=== PATIENT | male | born 1930 | race African-American/Black ===

== ENCOUNTER 2017-11-14 18:20 | Emergency (ER) | payer MEDICARE, MEDICAID ==
--- NOTE | 2017-11-14 18:43 | ER Document Report ---
ED Medical Screen (RME) - General Chief Complaint: Eye Problem Stated Complaint: EYE PAIN Time Seen by Provider: 11/14/17 18:36 Notes: RAPID MEDICAL EVALUATION DISCLOSURE I have seen this patient as part of a Rapid Medical Evaluation and, if applicable, placed any initially appropriate orders. The patient will be seen and fully evaluated, including a full history and physical exam, by a provider ( in Main ED or Fast Track) when a room becomes available. 87-year-old male here with niece who states that ever since yesterday he has been complaining of some pain and irritation to his right eye. This morning he woke up and his right eye was very red. The niece thinks he may have a history of glaucoma but she is unsure however he did "used to some of his eyedrops today " for the symptoms. They try to take him to his eye doctor however they were closed when they arrived so they brought him here instead. TRAVEL OUTSIDE OF THE [place] IN LAST 30 DAYS: No - Related Data Allergies/Adverse Reactions: No Known Allergies Allergy (Verified 11/14/17 18:23) Physical Exam - Vital signs Vitals: Temp Pulse Resp BP Pulse Ox 98.6 F 85 16 121/73 98 11/14/17 18:33 11/14/17 18:33 11/14/17 18:33 11/14/17 18:33 11/14/17 18:33 Course - Vital Signs Vital signs: Temp Pulse Resp BP Pulse Ox 98.6 F 85 16 121/73 98 11/14/17 18:33 11/14/17 18:33 11/14/17 18:33 11/14/17 18:33 11/14/17 18:33
[2017-11-14] MEDS ORDERED: TETRACAINE HCL 0.5% OPH SOLN 2 ML OU ONE (19:52)
--- NOTE | 2017-11-14 21:18 | ER Document Report ---
ED Eye Complaint - General Chief Complaint: Eye Problem Stated Complaint: EYE PAIN Time Seen by Provider: 11/14/17 18:36 Mode of Arrival: Ambulatory Information source: Patient Notes: 87-year-old male patient who presents with right eye irritation and mild pain. Patient reports that this started approximately 24 hours ago and he feels like there is something in his eye. Patient is unsure if he has a history of glaucoma however he reports taking 2 types of eyedrops daily. Patient reports that he is seen by chief school finance officer [facility] however he was unable to make it there in time before they closed. Patient denies any change in his vision and reports that he can see per his usual. TRAVEL OUTSIDE OF THE [place] IN LAST 30 DAYS: No - Related Data Allergies/Adverse Reactions: No Known Allergies Allergy (Verified 11/14/17 18:23) Past Medical History - General Information source: Patient - Social History Smoking Status: Never Smoker Frequency of alcohol use: None Drug Abuse: None Lives with: Family Family History: Reviewed & Not Pertinent Patient has suicidal ideation: No Patient has homicidal ideation: No - Past Medical History Cardiac Medical History: Reports: Hx Hypercholesterolemia, Hx Hypertension Renal/ Medical History: Denies: Hx Peritoneal Dialysis GI Medical History: Reports: Hx Gastroesophageal Reflux Disease Review of Systems - Review of Systems Constitutional: No symptoms reported EENT: See HPI Cardiovascular: No symptoms reported Respiratory: No symptoms reported Gastrointestinal: No symptoms reported Genitourinary: No symptoms reported Male Genitourinary: No symptoms reported Musculoskeletal: No symptoms reported Skin: No symptoms reported Hematologic/Lymphatic: No symptoms reported Neurological/Psychological: No symptoms reported Physical Exam - Vital signs Vitals: Temp Pulse Resp BP Pulse Ox 98.6 F 85 16 121/73 98 11/14/17 18:33 11/14/17 18:33 11/14/17 18:33 11/14/17 18:33 11/14/17 18:33 - Notes Notes: PHYSICAL EXAMINATION: GENERAL: Well-appearing, well-nourished and in no acute distress. HEAD: Atraumatic, normocephalic. ENT: Nares patent, oropharynx clear without exudates. Moist mucous membranes. NECK: Normal range of motion, supple without lymphadenopathy LUNGS: Breath sounds clear to auscultation bilaterally and equal. No wheezes rales or rhonchi. HEART: Regular rate and rhythm without murmurs ABDOMEN: Soft, nontender, nondistended abdomen. No guarding, no rebound. No masses appreciated. Musculoskeletal: Normal range of motion, no pitting or edema. No cyanosis. NEUROLOGICAL: Cranial nerves grossly intact. Normal speech, normal gait. Normal sensory, motor exams PSYCH: Normal mood, normal affect. SKIN: Warm, Dry, normal turgor, no rashes or lesions noted. - HEENT Head: Normocephalic Conjunctiva: Injected Cornea: Corneal ulcer Extraocular movements intact: Yes Eyelashes: Normal Pupils: PERRL Visual acuity- Right eye: 20/100 Visual acuity- Left eye: 20/50 Visual acuity- Both eyes: 20/50 Corrective lenses worn: No Lids everted for exam: right: Normal Course - Re-evaluation Re-evalutation: I examination performed after administration of 2 drops of tetracaine to the right eye. Right eye is erythematous, red, injected. Patient has what appears to be a corneal ulcer at approximately 3:[address] [place] lamp. Dr. Johansen was present for the eye exam and agrees with these findings. Patient denies any specific pain he only reports that he feels like there is something in his eye. Patient denies any change in vision. Patient's visual acuity is actually better in the right eye than in the left. Patient reports that he does not have the best vision at his baseline. Per advice from attending physician, Dr. Steen will contact [facility] as we do not have ophthalmology electrical tryout person this evening. Contacted [facility] who contacted the chief school finance officer electrical tryout person. Call received from Dr. Carli Leonard, chief school finance officer with [facility] in [place]. Discussed Mr. Ortiz's case and Dr. Leonard agrees to see patient in her office tomorrow at 10 AM. She is requesting that I placed the patient on Vigamox 1 drop every hour to the right eye until she sees him tomorrow at 10 AM. Patient's niece is at bedside and agrees to this plan of care. Patient will be discharged home with Vigamox provided by our pharmacy as well as directions to the [facility] and [facility] to follow-up tomorrow. Patient and family member did not have any questions at this time they are given ED return precautions to include pain in the eye or any other concerning symptoms to them. - Vital Signs Vital signs: Temp Pulse Resp BP Pulse Ox 98.6 F 89 18 145/94 H 99 11/14/17 22:19 11/14/17 22:19 11/14/17 22:19 11/14/17 22:19 11/14/17 22:19 Discharge - Discharge Clinical Impression: Eye problem Condition: Stable Disposition: HOME, SELF-CARE Additional Instructions: You may have a corneal ulcer. I have spoken to the on-call chief school finance officer at [facility], Dr. Alen Leonard. Please place one drop of the Vigamox into the right ever every hour until you see Dr. Leonard in the morning. Dr. Leonard will be waiting for you at her office at 10am in the morning. [facility] Dr. Carli Leonard [facility] [address] [id number] Corneal Ulceration You may have an infection on the surface of the clear part of the eye. This is called a corneal ulceration. It often occurs at the site of a foreign particle, or underneath a contact lens. With treatment, the ulceration should heal, but it's important that you follow the instructions to prevent complications. The treatment of an ulceration is antibiotic applied to the eye. Sometimes , an eye shield is applied. Pain medicine may be required. The pupil may be dilated with medication to decrease pain and prevent complications. Follow-up examination is important. If you wear contacts, don't re-insert your contact lens until the physician has examined your eye to determine that healing is complete. Lenses should be brought in for inspection. Call the doctor or return at once if you develop eye swelling, decreasing vision, severe pain, or fever. Prescriptions: Moxifloxacin HCl [Vigamox 0.5% Oph Soln 3 ml] 1 drop OD Q1H #1 bottle
[2017-11-14] MEDS ORDERED: MOXIFLOXACIN HCL 0.5% OPH SOLN 3 ML OD SCH (22:00)
[2017-11-14 22:27] VITALS: BP 145/94
== END 2017-11-14 22:26 | disposition home or self-care (01) ==
LOC: ER 18:20
DX: H57.8 Other specified disorders of eye and adnexa (principal); H40.9 Unspecified glaucoma; I10 Essential (primary) hypertension
CPT/HCPCS: 99283; J3490